=== PATIENT | female | born 1975 | race Caucasian/White ===

== ENCOUNTER 2016-11-08 21:07 | Emergency (ER) | payer OTHER ==
[~2016-11-08] VITALS: Ht 162.6 cm; Wt 64.2 kg
[~2016-11-08 21:07] MED LIST: AMOXICILLIN; ENDOCET 5-3251 EACH PO; Flintstones PO; MOTRIN800 MG PO; SKELAXIN400 M1 PO; ULTRAM50 MG PO; ZOFRAN ODT4 MG PO
[2016-11-08 21:57] LABS: HEMATOCRIT 38.6 % (36.0-46.0); MCH 29.7 PG (29.0-34.0); MCHC 33.7 G/DL (30.0-36.0); MCV 88.1 FL (83-99); MEAN PLAT.VOLUME 9.8 uM^3 (9.5-12.4); PLATELET COUNT 367 K/uL (156-360); RBC DIS.WIDTH-CV 12.6 % (11.8-14.6); RED BLOOD COUNT 4.38 M/uL (3.80-5.20); WHITE BLOOD COUNT 9.4 K/uL (4.1-10.2)
[2016-11-08 22:10] LABS: CHLORIDE 105 mEq/L (99-109); POTASSIUM 3.5 mEq/L (3.7-5.4); SODIUM 140 mEq/L (136-147)
[2016-11-08 22:11] LABS: GLUCOSE 112 mg/dL (70-99)
[2016-11-08 22:13] LABS: ANION GAP 9 MEQ/L (2-14)
[2016-11-08 22:15] LABS: GFR ESTIMATE (CALCULATED) > 59 mL/min/
[2016-11-08 22:15] LABS: ADD MIUA? YES; BILIRUBIN NEGATIVE; BLOOD MODERATE; COLOR YELLOW ((YELLOW)); GLUCOSE (STRIP) NEGATIVE; KETONES NEGATIVE; LEUKOCYTES NEGATIVE; NITRITE NEGATIVE; PROTEIN (STRIP) 30; SPECIFIC GRAVITY 1.025 (1.000-1.030); UROBILINOGEN 0.2 MG/DL (0.2-1.0)
[2016-11-08 22:16] LABS: UREA NITROGEN (BUN) 18 mg/dL (9-23)
[2016-11-08 22:54] VITALS: BP 96/61
[2016-11-08] MEDS ORDERED: CLINDAMYCIN HC150 MG PO (23:13)
[2016-11-08] MEDS ORDERED: PERIOGARD480 ML MM (23:13)
[2016-11-08 23:35] LABS: WHITE BLOOD CELLS NONE SEEN /HPF (0-5)
[2016-11-08 23:36] LABS: BACTERIA 1+ /HPF; CASTS PRESENT /LPF; EPITHELIAL CELLS 1+ /HPF; HYALINE CASTS 0-5 /LPF; MUCUS 3+ /LPF; UCUL ADDED? NO
== END 2016-11-08 23:27 | disposition home or self-care (01) ==
LOC: EME 21:07
PROVIDERS: Physician Assistant
DX: K05.10 Chronic gingivitis, plaque induced (principal); R05 Cough; Z87.891 Personal history of nicotine dependence
CPT/HCPCS: 71020; 80048; 81003; 85027; 87040; 99281; 99283

== ENCOUNTER → 2017-02-24 | Emergency (ER) | payer OTHER ==
[~2017-02-24] VITALS: Ht 160 cm; Wt 65.9 kg
[~2017-02-24] MED LIST changes: +CLINDAMYCIN HC150 MG PO; +PERCOCET 5/31 TABLET PO; +PERIOGARD480 ML MM
[2017-02-24 04:57] VITALS: BP 109/78
== END | disposition home or self-care (01) ==
LOC: EME 04:53
DX: S22.32XA Fracture of one rib, left side, initial encounter for closed fracture (principal); W11.XXXA Fall on and from ladder, initial encounter; F17.200 Nicotine dependence, unspecified, uncomplicated
CPT/HCPCS: 71101; 99281; 99283; J2270